=== PATIENT | male | born 1955 | race Caucasian/White ===

== ENCOUNTER 2017-11-06 21:26 | Observation (INO) ==
[2017-11-06 22:11] LABS: Baso # (Auto) 0.1 th/mm3 (0.0-0.2); Baso % (Auto) 0.8 % (0.0-2.0); Eos # (Auto) 0.2 th/mm3 (0.0-0.4); Eos % (Auto) 2.1 % (0.0-4.0); Hematocrit 43.5 % (39.0-51.0); Hemoglobin 14.6 gm/dL (13.0-17.0); Lymph # (Auto) 2.7 th/mm3 (1.0-4.8); Mean Corpuscular HGB Conc 33.5 % (32.0-36.0); Mean Corpuscular Hemoglobin 30.2 pg (27.0-34.0); Mean Corpuscular Volume 90.2 fL (80.0-100.0); Mean Platelet Volume 8.7 fL (7.0-11.0); Mono # (Auto) 0.8 th/mm3 (0.0-0.9); Mono % (Auto) 9.7 % (0.0-8.0); Neut # (Auto) 4.9 th/mm3 (1.8-7.7); Neut % (Auto) 56.4 % (16.0-70.0); Platelet Count 179 th/mm3 (150-450); Red Blood Count 4.83 mil/mm3 (4.50-5.90); Red Cell Distribution Width 14.1 % (11.6-17.2); White Blood Count 8.6 th/mm3 (4.0-11.0)
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
[2017-11-06 22:17] LABS: Prothrombin Time 10.5 sec (9.8-11.6)
[2017-11-06 22:29] LABS: Albumin 3.9 g/dL (3.4-5.0); Anion Gap 8 meq/L (5-15); Aspartate Aminotransferase 18 U/L (15-37); Blood Urea Nitrogen 21 mg/dL (7-18); Calcium 9.1 mg/dL (8.5-10.1); Carbon Dioxide 25.7 meq/L (21.0-32.0); Chloride 112 meq/L (98-107); Glomerular Filtration Rate 55 mL/min (>89); Glucose,Random 94 mg/dL (74-106); Sodium 146 meq/L (136-145)
[2017-11-06 22:30] LABS: Alanine Aminotransferase 29 U/L (12-78)
[2017-11-06 22:33] LABS: Alkaline Phosphatase 73 U/L (45-117); Total Protein 7.3 g/dL (6.4-8.2)
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
--- NOTE | 2017-11-06 23:31 | CT ---
EXAM DATE: 11/06/2017 11:27 PM EDT AGE/SEX: 62 years / Male INDICATIONS: Chest pain. CLINICAL DATA: This is the patient's initial encounter. Patient reports that signs and symptoms have been present for 1 day and indicates a pain score of 5/10. MEDICAL/SURGICAL HISTORY: None. None. RADIATION DOSE: 10.81 CTDI (mGy) COMPARISON: [facility], CHEST 1V SINGLE AP, 11/06/2017. . TECHNIQUE: Volumetric scanning was performed using a multi-row detector CT scanner during bolus infu harman of 75 ml Omnipaque 350 (iohexol) nonionic water-soluble contrast as a single exam dose. The raoul a was post processed with a variety of visualization algorithms including full volume maximum intensi ty projection and sliding thin slab reformation. Using automated exposure control and adjustment of the mA and/or kV according to patient size, radiation dose was kept as low as reasonably achievable t o obtain optimal diagnostic quality images. DICOM format image data is available electronically for review and comparison. FINDINGS: There is minimal linear scarring versus atelectasis. There is no evidence of pneumonia. No adenopathy . There is no evidence for pulmonary embolism, or aortic dissection. Osseous structures are intact. CONCLUSION: 1. No evidence for pulmonary embolism. Electronically signed by: Arben Yeh MD 11/06/2017 11:29 PM EDT
[2017-11-07] MEDS ORDERED: Sod Chloride 0.9% Inj 1,000 ML IV.SIG ONE (00:33)
[2017-11-07] MEDS ORDERED: Bisacodyl 10 MG Supp RECTAL PRN (02:17)
[2017-11-07] MEDS ORDERED: Acetaminophen 325 MG Tablet PO PRN (02:17)
[2017-11-07 04:42] LABS: Amphetamine Screen,Urine Neg (Neg); Barbiturate Screen,Urine Neg (Neg); Cannabinoid Screen,Urine Neg (Neg); Cocaine Screen,Urine Neg (Neg)
[2017-11-07 04:50] LABS: Opiate Screen,Urine Neg (Neg)
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
[2017-11-07] MEDS ORDERED: VILAZODONE 40 MG PO SCH (09:00)
[2017-11-07] MEDS: buPROPion 100 MG Tablet PO SCH (09:08)
[2017-11-07] MEDS: Ezetimibe 10 MG Tablet PO SCH (09:09)
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
--- NOTE | 2017-11-07 12:51 | ECHRPT ---
Indication: CARDIOMYOPATHY CONCLUSIONS Normal left ventricular size. Mild concentric left ventricular hypertrophy. The left ventricular systolic function is low normal or mildly reduced with an estimated ejection fr action in the range of 45-50%. Trace mitral valve regurgitation. There is mild tricuspid valve regurgitation. The estimated pulmonary arterial pressure is 31.2 mmHg. A prominent epicardial fat pad is present. BP: / HR: Rhythm: Sinus MEASUREMENTS (Male / Female) Normal Values Technical Quality:Fair 2D ECHO LV Diastolic Diameter PLAX 5.3 cm 4.2 - 5.9 / 3.9 - 5.3 cm LV Systolic Diameter PLAX 4.0 cm IVS Diastolic Thickness 1.2 cm 0.6 - 1.0 / 0.6 - 0.9 cm LVPW Diastolic Thickness 1.2 cm 0.6 - 1.0 / 0.6 - 0.9 cm LV Relative Wall Thickness 0.4 RV Internal Dim ED PLAX 3.5 cm LVOT Diameter 2.4 cm Aortic Root Diameter 3.6 cm LA Systolic Diameter LX 3.9 cm 3.0 - 4.0 / 2.7 - 3.8 cm DOPPLER AV Peak Velocity 130.0 cm/s AV Peak Gradient 6.8 mmHg AV Mean Gradient 4.0 mmHg AV Velocity Time Integral 25.4 cm LVOT Peak Velocity 74.4 cm/s LVOT Peak Gradient 2.2 mmHg LVOT Velocity Time Integral 14.3 cm AV Area Cont Eq vti 2.5 cm AV Area Cont Eq pk 2.6 cm Mitral E Point Velocity 45.4 cm/s Mitral A Point Velocity 59.7 cm/s Mitral E to A Ratio 0.8 LV E' Lateral Velocity 8.8 cm/s Mitral E to LV E' Lateral Ratio 5.2 LV E' Septal Velocity 6.6 cm/s Mitral E to LV E' Septal Ratio 6.8 TR Peak Velocity 230.0 cm/s TR Peak Gradient 21.2 mmHg Right Atrial Pressure 10.0 mmHg Pulmonary Artery Systolic Pressu 31.2 mmHg Right Ventricular Systolic Press 31.2 mmHg PV Peak Velocity 54.1 cm/s PV Peak Gradient 1.2 mmHg FINDINGS LEFT VENTRICLE Normal left ventricular size. Mild concentric left ventricular hypertrophy. The left ventricular systolic function is low normal mildly reduced with an estimated ejection fract ion in the range of 45-50%. RIGHT VENTRICLE Normal right ventricular size and systolic function. LEFT ATRIUM The left atrial size is normal. RIGHT ATRIUM The right atrial size is normal. ATRIAL SEPTUM Normal atrial septal thickness without atrial level shunting by limited color doppler interrogation. AORTA The aortic root and proximal ascending aorta are normal in size on limited imaging. MITRAL VALVE Trace mitral valve regurgitation. AORTIC VALVE Trileaflet aortic valve. No aortic valve stenosis or regurgitation. TRICUSPID VALVE There is mild tricuspid valve regurgitation. The estimated pulmonary arterial pressure is 31.2 mmHg. PULMONARY VALVE The pulmonary valve is not well visualized. VESSELS The inferior vena cava was not well visualized. PERICARDIUM A prominent epicardial fat pad is present. Chaim Hdz MD (Electronically Signed) Final Date:07 November 2017 12:51
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
--- NOTE | 2017-11-07 14:24 | US ---
EXAM DATE: 11/07/2017 1:42 PM EDT AGE/SEX: 62 years / Male INDICATIONS: Syncope. CLINICAL DATA: This is the patient's initial encounter. Patient reports that signs and symptoms have been present for 1 day and indicates a pain score of 0/10. MEDICAL/SURGICAL HISTORY: Hypercholesterolemia. Hypertension. Anxiety. Depression. . Hernia r epair. Lithotripsy. COMPARISON: No prior exams available for comparison. VELOCITY PARAMETERS: ICA/CCA Ratio: Right 0.8 , Left 0.8 ICA: Right 78 cm/sec, Left 77 cm/sec CCA: Right 100 cm/sec, Left 94 cm/sec ECA: Right 105 cm/sec, Left 98 cm/sec Vertebral: Right 46 cm/sec antegrade, Left 46 cm/sec antegrade FINDINGS: Right Carotid: Mild arteriosclerotic plaque is visualized.The waveforms are within normal limits. Left Carotid: No significant plaque is visualized. The waveforms are within normal limits. Other: Heterogeneous thyroid nodule right lower lobe measures 2.4 x 2.0 x 2.1 cm.. CONCLUSION: 1. No hemodynamically significant stenosis. 2. Right thyroid nodule measures 2.4 cm. Follow-up nonemergent thyroid sonogram recommended. Electronically signed by: Edy Gaviria MD 11/07/2017 2:23 PM EDT
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
--- NOTE | 2017-11-07 18:21 | US ---
EXAM DATE: 11/07/2017 6:02 PM EDT AGE/SEX: 62 years / Male INDICATIONS: Nodule seen in prior carotid exam. CLINICAL DATA: This is the patient's initial encounter. Patient reports that signs and symptoms have been present for 1 day and indicates a pain score of 0/10. MEDICAL/SURGICAL HISTORY: Hypercholesterolemia. Hypertension. Anxiety. Depression. Hernia. Li thotripsy. Hernia repair. COMPARISON: No prior exams available for comparison. MEASUREMENTS: Right Lobe: 3.8 x 1.8 x 2.7 cm Left Lobe: Not well visualized. Not visualized. FINDINGS: Right Lobe: A complex partially cystic, solid nodule is identified in the right thyroid lobe measuri ng 2.5 x 2.3 x 1.9 cm in size. Left Lobe: Homogeneous echotexture without nodules or cysts. Vascularity is within normal limits. Isthmus: Normal in size without focal abnormality. Other: None. CONCLUSION: 1. 2.5 cm complex partially cystic solid nodule in the right thyroid lobe. 2. Unremarkable left thyroid lobe. Electronically signed by: Ryan Galo MD 11/07/2017 6:20 PM EDT
[2017-11-07 20:23] VITALS: RESP 18
[2017-11-07] MEDS ORDERED: Gadobutrol PF 10 MMOL/10 ML Vial (for RAD) IV.SIG ONE (20:51)
--- NOTE | 2017-11-07 21:01 | MR ---
EXAM DATE: 11/07/2017 8:55 PM EDT AGE/SEX: 62 years / Male INDICATIONS: . Syncope. CLINICAL DATA: This is the patient's initial encounter. Patient reports that signs and symptoms have been present for 1 day and indicates a pain score of 0/10. MEDICAL/SURGICAL HISTORY: Hypertension. . Hernia repair and lithotripsy. COMPARISON: [facility] [place], CT HEAD W/O CONTRAST, 11/06/2017. . TECHNIQUE: Multiplanar, multisequence examination of the brain was performed without and with 10 ml G adavist (gadobutrol) contrast as a single exam dose. FINDINGS: Cerebrum: The ventricles are normal for age. No evidence of midline shift, mass lesion, hemorrhage or acute infarction. No extraaxial fluid collections are seen. The pituitary gland and suprasellar cistern are normal in configuration. White Matter: No significant signal abnormalities are seen in the white matter. Posterior Fossa: The cerebellum and brainstem are intact. The 4th ventricle is midline. The cerebel lopontine angle is unremarkable. The cerebellar tonsils are normal in position. Diffusion Imaging: No focal areas of restricted diffusion are seen. No evidence of acute infarction . Extracranial: The visualized portions of the orbits and paranasal sinuses are unremarkable. Post Contrast: No abnormal areas of parenchymal or dural enhancement. No evidence of blood-brain ba rrier breakdown. CONCLUSION: 1. Negative MR Brain with and without contrast. 2. No evidence of acute ischemic disease, hemorrhage, mass, edema or enhancing lesions. Electronically signed by: Ryan Galo MD 11/07/2017 9:00 PM EDT
--- NOTE | 2017-11-07 22:11 | ECG ---
Date Performed: 11/06/2017 Time Performed: 22:01:23 PTAGE: 62 years EKG: Sinus rhythm NORMAL ECG PREVIOUS TRACING : 11/06/2017 21.55 DOCTOR: Kathy Alston Interpretating Date/Time 11/07/2017 22:09:37
[2017-11-08 03:56] VITALS: TEMP 98.9
[2017-11-08 07:39] LABS: Baso % (Auto) 0.7 % (0.0-2.0); Eos # (Auto) 0.2 th/mm3 (0.0-0.4); Eos % (Auto) 2.3 % (0.0-4.0); Hematocrit 38.3 % (39.0-51.0); Lymph # (Auto) 1.6 th/mm3 (1.0-4.8); Lymph % (Auto) 23.4 % (9.0-44.0); Mean Corpuscular Hemoglobin 30.6 pg (27.0-34.0); Mean Platelet Volume 8.5 fL (7.0-11.0); Mono # (Auto) 0.5 th/mm3 (0.0-0.9); Mono % (Auto) 7.6 % (0.0-8.0); Neut # (Auto) 4.5 th/mm3 (1.8-7.7); Platelet Count 142 th/mm3 (150-450); Red Blood Count 4.25 mil/mm3 (4.50-5.90); Red Cell Distribution Width 14.2 % (11.6-17.2); White Blood Count 6.8 th/mm3 (4.0-11.0)
[2017-11-08 08:08] LABS: Calcium 8.1 mg/dL (8.5-10.1); Carbon Dioxide 24.3 meq/L (21.0-32.0); Potassium 3.7 meq/L (3.5-5.1)
[2017-11-08 08:26] VITALS: BP 141/80; O2SAT 98
[2017-11-08] MEDS ORDERED: VILAZODONE 40 MG PO SCH (09:00)
[2017-11-08] MEDS: buPROPion 100 MG Tablet PO SCH (09:22)
[2017-11-08] MEDS: Ezetimibe 10 MG Tablet PO SCH (09:22)
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
[2017-11-08 12:11] VITALS: PULSE 75
== END 2017-11-08 13:51 | disposition home or self-care (01) ==
LOC: NEPGCP 21:26 → NEDA 21:26 → NEPD 21:26 → NEPGCP 11-07 02:58
PROVIDERS: ADMIT Hospitalist; ATTEND Hospitalist